=== PATIENT | female | born 1945 | race Caucasian/White ===

== ENCOUNTER 2017-04-03 22:17 | Observation (INO) | payer MEDICARE, OTHER ==
[~2017-04-03 22:17] MED LIST: ASPI1TAB7 PO; ASPI81TA81 PO; CARV6.252 PO; CRES20TA PO; NEBI2.5 PO; NEXI40CA PO; NORT10CA PO; OMEG1CAP53 PO; PROT40TA PO; TRAM50TA PO
[2017-04-03 22:43] VITALS: BP 143/75; PULSE 76; RESP 18; TEMP 98; O2SAT 92
[2017-04-03] MEDS ORDERED: ACETAMINOPHEN 325 MG TAB PO PRN (23:15)
[2017-04-03] MEDS ORDERED: MAGNESIUM HYDROXIDE SUSP 30 ML CUP PO PRN (23:15)
[2017-04-03] MEDS ORDERED: SENNOSIDES 8.6 MG TAB PO PRN (23:15)
--- NOTE | 2017-04-03 23:25 | HHI.HP ---
HPI Service [facility] Primary Care Physician Unknown Admission Diagnosis Diagnoses: Chief Complaint: near syncope, shoulder pain Travel History International Travel<30 Days: No Contact w/Intl Traveler <30 Da: No Traveled to Known Affected Are: No History of Present Illness 72 y/o female with a history of CAD,s/p cabg 5 months ago, HTN, HLD, and kidney stones presented to the [place] ED with complaints of right shoulder pain. While in the ED she had a near syncopal episode and became diaphoretic and hypotensive, she was then transferred to [facility]. She states she was moving a mattress at home today and she felt a sharp pain in her right shoulder, 10/10, with radiation to her fingers. She took a tramadol and went and laid down , the pain began to become worse with movement so she came to the ED. She states while checking in she became lightheaded, diaphoretic and nauseated. She was found to have a SBP in the 70s, and was given fluids which resolved the hypotension. She states the pain was so severe in her shoulder at this time, morphine was given and it eased her pain. She denies any chest pain, sob, fever or chills. She is currently resting comfortably with 6/10 pain with movement. She has had chronic shoulder pain due to arthritis, and PCP has ordered physical therapy to start this week. She does follow with Dr. Granados and Dr. De La Fuente since her CABG and states last month she had a carotid US completed and one side was 50% and the other was 74%, she is continuing to be monitored out patient for palpitation and sob since surgery. She states without her carvedilol she has palpitations. Review of Systems Constitutional: DENIES: Fever, Chills, Dizziness Eyes: DENIES: Vision loss Respiratory: DENIES: Cough, Shortness of breath Cardiovascular: DENIES: Chest pain, Lower Extremity Edema Gastrointestinal: COMPLAINS OF: Nausea, DENIES: Constipation, Diarrhea, Vomiting Genitourinary: DENIES: Hematuria, Dysuria Musculoskeletal: COMPLAINS OF: Joint pain, Back pain (chronic), DENIES: Neck pain Integumentary: DENIES: Rash Neurologic: DENIES: Headache, Localized weakness Past Family Social History Past Medical History CAD HLD HTN Kidney stones Past Surgical History Cabg Oct 2016 Back fusion Appendectomy Lithotripsy Reported Medications Reported Meds & Active Scripts Active Reported Protonix (Pantoprazole Sodium) 40 Mg Tab 40 Mg PO DAILY Tramadol (Tramadol HCl) 50 Mg Tab 50 Mg PO Q8H PRN Carvedilol 6.25 Mg Tab 6.25 Mg PO TID Aspir-81 (Aspirin) 81 Mg Tabdr 1 Tab PO DAILY Allergies: Coded Allergies: No Known Allergies (Unverified , 04/03/17) Active Ordered Medications Current Medications Medications (Trade) Dose Ordered Sig/Bernarda Route Start Time Stop Time Status Last Admin (Tylenol) 650 mg Q4H PRN PO 04/03/17 23:15 (Zofran Inj) 4 mg Q6H PRN IVP 04/03/17 23:15 (Milk Of Magnesia Liq) 30 ml Q12H PRN PO 04/03/17 23:15 (Senokot) 17.2 mg Q12H PRN PO 04/03/17 23:15 Family History Mom: Heart disease Dad: Heart disease Brother: [place] Sister: Breast cancer Social History Patient denies any tobacco, alcohol or illicit drug use Physical Exam Vital Signs Vital Signs Date Time Temp Pulse Resp B/P Pulse Ox O2 Delivery O2 Flow Rate FiO2 04/03/17 22:43 98.0 76 18 143/75 92 Physical Exam GENERAL: This is a well-nourished, well-developed patient, in no apparent distress. SKIN: No rashes, ecchymoses or lesions. Cool and dry. HEAD: Atraumatic. Normocephalic. EYES: Pupils equal round and reactive. ENT: Nose without bleeding, purulent drainage or septal hematoma. Airway patent. NECK: Trachea midline. No JVD or lymphadenopathy. Supple, nontender, no meningeal signs. CARDIOVASCULAR: Regular rate and irregular rhythm without murmurs, gallops, or rubs. RESPIRATORY: Clear to auscultation. Breath sounds equal bilaterally. No wheezes , rales, or rhonchi. GASTROINTESTINAL: Abdomen soft, non-tender, nondistended. No hepato-splenomegaly , or palpable masses. No guarding. MUSCULOSKELETAL: Extremities without clubbing, cyanosis, or edema.Right shoulder tenderness. No calf tenderness. NEUROLOGICAL: Awake and alert. Motor and sensory grossly within normal limits. Normal speech. Assessment and Plan Problem List: (1) Near syncope ICD Code: R55 Status: Acute (2) Shoulder pain, right ICD Code: M25.511 Status: Acute (3) Coronary artery disease ICD Code: I25.10 Status: Chronic (4) HTN (hypertension) ICD Code: I10 Status: Chronic Assessment and Plan 72 y/o female with a history of CAD,s/p cabg 5 months ago, HTN, HLD, and kidney stones presented to the [place] ED with complaints of right shoulder pain. While in the ED she had a near syncopal episode and became diaphoretic and hypotensive, she was then transferred to [facility]. Near syncope with nausea, diaphoresis, and lightheadedness, likely vasovagal from extreme shoulder pain -Patient has had a recent US carotid last month with her simulation developer Dr. Granados -Orthostatic BP ordered -Monitor tele Right shoulder pain, acute Shoulder xray reviewed and was unremarkable -Keep arm in sling -PT eval and treat -Tramadol for pain CAD, chronic s/p Cabg -Cont ASA HTN, chronic, currently stable -Cont carvedilol, HS dose given tonight -Monitor vitals DVT prophylaxis: SCDs Discussed Condition With Patient Problem Qualifiers (1) Shoulder pain, right: Qualified Code: M25.511 - Acute pain of right shoulder (2) Coronary artery disease: Qualified Code: I25.810 - Coronary artery disease involving coronary bypass graft of [place] heart, angina presence unspecified (3) HTN (hypertension): Qualified Code: I10 - Hypertension, unspecified type Iza Myers Apr 03, 2017 23:25 (3) HTN (hypertension): Qualified Code: I10 - Hypertension, unspecified type BarbIza kumar Apr 03, 2017 23:25
[2017-04-04] VITALS (9 sets, daily range): BP systolic 104–190; BP diastolic 56–84; PULSE 59–74; RESP 16–20; TEMP 97.5–98.6; O2SAT 92–96
[2017-04-04] MEDS ORDERED: CARVEDILOL 6.25 MG TAB PO ONE (00:15)
[2017-04-04] MEDS ORDERED: traMADol HCL 50 MG TAB PO PRN (00:15)
[2017-04-04] MEDS: ONDANSETRON HCL 4 MG/2 ML VIAL IVP PRN ×2 (00:30→14:00)
[2017-04-04 02:19] LABS: ANION GAP 9 MEQ/L (5-15); AST (GOT) 13 U/L (15-37); BICARBONATE 24.4 MEQ/L (21.0-32.0); BLOOD UREA NITROGEN 20 MG/DL (7-18); CHLORIDE 106 MEQ/L (98-107); GLOMERULAR FILTRATION RATE 93 ML/MIN (>89); POTASSIUM 4.1 MEQ/L (3.5-5.1); SODIUM (NA) 139 MEQ/L (136-145)
[2017-04-04 02:24] LABS: ALKALINE PHOSPHATASE 85 U/L (45-117); ALT (GPT) 22 U/L (10-53); TOTAL BILIRUBIN ADULT 0.3 MG/DL (0.2-1.0)
--- NOTE | 2017-04-04 08:45 | RADRPT ---
EXAM DATE/TIME: 04/04/2017 07:57 [place] COMPARISON: No previous studies available for comparison. INDICATIONS : Syncope. MEDICAL HISTORY : Myocardial infarction. Hypercholesterolemia. Renal calculi. Thyroid disease. Coronary artery disease. Hyperlipidemia. Chest pain. Irregular heartbeat. HTN. GERD. Urosepsis. Rheumatoid arthritis. Antico agulant therapy, Aspirin 81mg. SURGICAL HISTORY : Angioplasty. Appendectomy. Coronary artery stent. CABG. section. Spinal fusion. ENCOUNTER: Initial ACUITY: 2 days PAIN SCORE: 3/10 LOCATION: Bilateral neck PEAK SYSTOLIC VELOCITIES (cm/sec): ICA/CCA RATIO: Right: 1.0 Left: 2.5 ICA: Right: 102 Left: 229 CCA: Right: 105 Left: 90 ECA: Right: 121 Left: 256 VERTEBRAL: Right: 73 antegrade Left: 63 antegrade Elevated flow velocities and ICA/CCA ratios have been found to correlate with increased degrees of vessel stenosis, calculated as percentage of diameter relative to a normal segment of distal ICA/CCA FINDINGS: There is mild atherosclerotic disease involving bilateral ICA bifurcation and distal common carotid a rteries. There is mild to moderate hemodynamic stenosis on the left on the order of 50-70%. CONCLUSION: [id number] stenosis involving the left ICA. Nila Vázquez MD on April 04, 2017 at 8:42 Board Certified Radiologist. This report was verified electronically.
[2017-04-04] MEDS ORDERED: PANTOPRAZOLE SOD 40 MG DELAYED RELEASE TAB PO SCH (09:00)
[2017-04-04] MEDS ORDERED: ASPIRIN EC 81 MG TABEC PO SCH (09:00)
[2017-04-04] MEDS: CARVEDILOL 6.25 MG TAB PO SCH ×3 (09:15→18:00)
--- NOTE | 2017-04-04 09:57 | HHI.PR ---
Subjective Remarks Follow-up for near-syncope, right shoulder pain. The patient reports continued right shoulder pain today, improved with pain medication and immobilization. She states she is set up for outpatient physical therapy this week for her shoulder. She denies any recurrent episodes of lightheadedness, diaphoresis, or nausea. She believes the episode was related to her taking the pain medication and being in excruciating pain. She states Dr. De La Fuente follows her carotid stenosis, recently had carotid ultrasound one month ago which showed 50 % blockage on the right, and 74% blockage on the left, no surgical intervention recommended at that time. She wants to go home later today. Objective Vitals Vital Signs Date Time Temp Pulse Resp B/P Pulse Ox O2 Delivery O2 Flow Rate FiO2 04/04/17 08:15 98.6 62 16 128/62 93 129/61 166/77 04/04/17 07:47 59 04/04/17 07:12 97.7 63 20 121/56 95 04/04/17 04:42 62 04/04/17 04:17 97.5 64 18 119/58 96 04/04/17 00:03 97.6 68 18 144/74 92 175/74 190/84 04/03/17 22:43 98.0 76 18 143/75 92 Result Diagram: 04/04/17 0130 Imaging Last Impressions Carotid Artery Ultrasound 04/04/17 0000 Signed Impressions: Service Date/Time: Tuesday, April 04, 2017 07:57 - CONCLUSION: Mild-to- moderate stenosis involving the left ICA. Nila Vázquez MD Objective Remarks GENERAL: Well-nourished, well-developed pleasant elderly female patient in [facility]. SKIN: Warm and dry. No rash. HEENT: Normocephalic. Atraumatic.Pupils equal and round. Mucous membranes pink and moist. NECK: Supple. Trachea midline. CARDIOVASCULAR: Regular rate and rhythm. S1, S2 noted. No murmur appreciated. RESPIRATORY: No accessory muscle use. Clear to auscultation. Breath sounds equal bilaterally. GASTROINTESTINAL: Abdomen soft, non-tender, nondistended. Normoactive bowel sounds x4. MUSCULOSKELETAL: No obvious deformities. Extremities without clubbing, cyanosis , or edema. NEUROLOGICAL: Awake and alert. No obvious cranial nerve deficits. Motor grossly within normal limits. Normal speech. PSYCHIATRIC: Appropriate mood and affect; insight and judgment normal. Procedures None. Medications and IVs Current Medications Medications (Trade) Dose Ordered Sig/Bernarda Route Start Time Stop Time Status Last Admin (Tylenol) 650 mg Q4H PRN PO 04/03/17 23:15 (Zofran Inj) 4 mg Q6H PRN IVP 04/03/17 23:15 04/04/17 00:30 (Milk Of Magnesia Liq) 30 ml Q12H PRN PO 04/03/17 23:15 (Senokot) 17.2 mg Q12H PRN PO 04/03/17 23:15 (Ecotrin Ec) 81 mg DAILY PO 04/04/17 09:00 04/04/17 09:14 (Coreg) 6.25 mg TID PO 04/04/17 09:00 04/04/17 09:15 (Protonix) 40 mg DAILY PO 04/04/17 09:00 04/04/17 09:15 (Ultram) 50 mg Q8H PRN PO 04/04/17 00:15 04/04/17 00:29 A/P Problem List: (1) Near syncope ICD Code: R55 Status: Acute (2) Shoulder pain, right ICD Code: M25.511 Status: Acute (3) Coronary artery disease ICD Code: I25.10 Status: Chronic (4) HTN (hypertension) ICD Code: I10 Status: Chronic Assessment and Plan 72 y/o female with a history of CAD,s/p cabg 5 months ago, HTN, HLD, and kidney stones presented to the [place] ED with complaints of right shoulder pain. While in the ED she had a near syncopal episode and became diaphoretic and hypotensive, she was then transferred to [facility]. Near syncope with nausea, diaphoresis, and lightheadedness, likely vasovagal from extreme shoulder pain and taking narcotic pain medication -Carotid U/S with moderate stenosis on the left, patient aware and follows with Dr. De La Fuente as outpatient, no intervention recommended at this time. -Orthostatic blood pressures negative -Monitor on telemetry -Echocardiogram no wall motion abnormalities, EF 55-60%, grade I Diastolic dysfunction. Right shoulder pain, acute -Shoulder xray reviewed and was unremarkable -Keep arm in sling -PT eval and treat -Tramadol for pain -outpatient f/up with ortho and PT as scheduled CAD, chronic s/p Cabg -Continue patient's ASA HTN, chronic, currently stable -Continue patient's carvedilol -Monitor vitals DVT prophylaxis: SCDs Discharge Planning 1800hrs: Echocardiogram unremarkable. Patient feels better and wants to go home. Will discharge. Discharge patient to home Condition on discharge: Improved Heart Healthy Diet as tolerated Ad Maral activity Rx written: Mobic 7.5mg po qd Follow-up with primary care physician and physical therapy Attending Statement The exam, history, and the medical decision-making described in the above note were completed with the assistance of the mid-level provider. I reviewed and agree with the findings presented. I attest that I had a [id number] encounter with the patient on the same day, and personally performed and documented my assessment and findings in the medical record. Evaluated Physical Therapy and Echocardiogram at this time and patient for discharge now. Problem Qualifiers (1) Shoulder pain, right: Qualified Code: M25.511 - Acute pain of right shoulder (2) HTN (hypertension): Qualified Code: I10 - Hypertension, unspecified type Khadijah Pinon PA-C Apr 04, 2017 9:57 am Ean Adams MD Apr 04, 2017 5:56 pm
[2017-04-04] MEDS ORDERED: MORPHINE SULFATE 4 MG/ML INJ IV PUSH PRN ×2 (11:30)
[2017-04-04] MEDS ORDERED: MELO7.5T4 PO (13:21)
--- NOTE | 2017-04-04 13:22 | HHI.DCPOC ---
Discharge Care Plan Diagnosis: (1) Shoulder pain, right (2) Near syncope (3) HTN (hypertension) (4) Carotid stenosis Goals to Promote Your Health * To prevent worsening of your condition and complications * To maintain your health at the optimal level Directions to Meet Your Goals Take your medications as prescribed Follow your dietary instruction Follow activity as directed Keep your appointments as scheduled Take your immunizations and boosters as scheduled If your symptoms worsen call your PCP, if no PCP go to Urgent Care Center or Emergency Room Smoking is Dangerous to Your Health. Avoid second hand smoke Call the 24-hour hour crisis hotline for domestic abuse at Khadijah Pinon PA-C Apr 04, 2017 13:22
--- NOTE | 2017-04-04 16:56 | ECHRPT ---
Indication: CARDIOMYOPATHY CONCLUSIONS Normal left ventricular size. Wall thickness is normal. The left ventricular systolic function is normal with an estimated ejection fraction in the range of 55-60%. No regional wall motion abnormalities are present. Doppler parameters are consistent with impaired left ventricular relaxtion (grade 1 diastolic dysfun ction). Trace mitral valve regurgitation. There is mild tricuspid valve regurgitation. There is estimated mild pulmonary hypertension present (range 40-50 mmHg). Trivial pulmonary valve regurgitation with normal valve. Normal left ventricular size. Wall thickness is normal. The left ventricular systolic function is normal with an estimated ejection fraction in the range of 55-60%. No regional wall motion abnormalities are present. Doppler parameters are consistent with impaired left ventricular relaxtion (grade 1 diastolic dysfun ction). Trace mitral valve regurgitation. There is mild tricuspid valve regurgitation. There is estimated mild pulmonary hypertension present (range 40-50 mmHg). Trivial pulmonary valve regurgitation with normal valve. Normal left ventricular size. Wall thickness is normal. The left ventricular systolic function is normal with an estimated ejection fraction in the range of 55-60%. No regional wall motion abnormalities are present. Doppler parameters are consistent with impaired left ventricular relaxtion (grade 1 diastolic dysfun ction). Trace mitral valve regurgitation. There is mild tricuspid valve regurgitation. There is estimated mild pulmonary hypertension present (range 40-50 mmHg). Trivial pulmonary valve regurgitation with normal valve. BP: 121 / 56 HR: 63 Rhythm: MEASUREMENTS (Male / Female) Normal Values Technical Quality: 2D ECHO LV Diastolic Diameter PLAX 3.4 cm 4.2 - 5.9 / 3.9 - 5.3 cm LV Systolic Diameter PLAX 2.6 cm IVS Diastolic Thickness 1.0 cm 0.6 - 1.0 / 0.6 - 0.9 cm LVPW Diastolic Thickness 1.0 cm 0.6 - 1.0 / 0.6 - 0.9 cm LV Relative Wall Thickness 0.6 LVOT Diameter 1.9 cm Aortic Root Diameter 3.1 cm LA Systolic Diameter LX 3.2 cm 3.0 - 4.0 / 2.7 - 3.8 cm M-MODE AV Cusp Separation MM 2.1 cm DOPPLER AV Peak Velocity 121.0 cm/s AV Peak Gradient 5.9 mmHg AV Mean Gradient 3.0 mmHg AV Velocity Time Integral 26.1 cm LVOT Peak Velocity 85.0 cm/s LVOT Peak Gradient 2.9 mmHg LVOT Velocity Time Integral 17.6 cm LVOT Cardiac Index 1863.3 cm/minm AV Area Cont Eq vti 1.9 cm AV Area Cont Eq pk 2.0 cm Mitral E Point Velocity 64.2 cm/s Mitral A Point Velocity 77.3 cm/s Mitral E to A Ratio 0.8 LV E' Lateral Velocity 6.5 cm/s Mitral E to LV E' Lateral Ratio 9.8 LV E' Septal Velocity 4.3 cm/s Mitral E to LV E' Septal Ratio 15.0 TR Peak Velocity 297.0 cm/s TR Peak Gradient 35.3 mmHg PV Peak Velocity 42.1 cm/s PV Peak Gradient 0.7 mmHg FINDINGS LEFT VENTRICLE Normal left ventricular size. Wall thickness is normal. The left ventricular systolic function is normal with an estimated ejection fraction in the range of 55-60%. No regional wall motion abnormalities are present. Doppler parameters are consistent with impaired left ventricular relaxtion (grade 1 diastolic dysfun ction). RIGHT VENTRICLE Normal right ventricular size and systolic function. MITRAL VALVE Structurally normal mitral valve. Trace mitral valve regurgitation. TRICUSPID VALVE Structurally normal tricuspid valve. There is mild tricuspid valve regurgitation. There is estimated mild pulmonary hypertension present (range 40-50 mmHg). PULMONARY VALVE Trivial pulmonary valve regurgitation with normal valve. Gabriele Mace MD, FACC, [facility] [place] (Electronically Signed) Final Date:04 April 2017 16:55
--- NOTE | 2017-04-05 09:26 | EKG ---
Date Performed: 04/04/2017 Time Performed: 02:16:20 PTAGE: 72 years EKG: Sinus rhythm POSSIBLE LEFT ATRIAL ENLARGEMENT ST DEVIATION AND MODERATE T-WAVE ABNORMALITY, CONSIDER LATERAL ISCH EMIA Poor R wave progression ABNORMAL ECG NO PREVIOUS TRACING DOCTOR: Gabriele Mace Interpretating Date/Time 04/05/2017 09:26:43
== END 2017-04-04 18:42 | disposition home or self-care (01) ==
LOC: NEDDLT 22:17 → UNDOADMOB 22:20 → NEPGCP 22:20 → UNDODISOB 04-04 18:42
PROVIDERS: ADMIT Internal Medicine; ATTEND Internal Medicine
DX: I65.22 Occlusion and stenosis of left carotid artery (principal); R55 Syncope and collapse; M25.511 Pain in right shoulder; I25.10 Atherosclerotic heart disease of native coronary artery without angina pectoris; I10 Essential (primary) hypertension; Z95.1 Presence of aortocoronary bypass graft
CPT/HCPCS: 73030; 80053; 84484; 85025; 93005; 93306; 93880; 97162; G0378; G8987; G8988; J1885; J2270; J2405; J7030